=== PATIENT | female | born 1945 | race Caucasian/White ===

== ENCOUNTER 2024-08-08 12:01 | Emergency (ER) | payer MEDICARE, SELFPAY ==
[2024-08-08 12:02] VITALS: PULSE 60; RESP 16; O2SAT 98; BMI 15.5
[2024-08-08 12:04] VITALS: BP 184/78; PULSE 72; RESP 19; TEMP 37; O2SAT 95
--- NOTE | 2024-08-08 12:12 | XR_ITS ---
Examination: Duplex scan of the lower extremity, unilateral right Date and time of exam: August 08, 2024 1250 hours INDICATIONS: Right leg discoloration and pain 3 days Technique: Duplex scan of the extremity veins using B-mode/grayscale imaging and Doppler spectral analysis and color flow Attention is directed to internal echogenicity, compression and augmentation involving these veins, color flow assessment, spectral analysis Findings: Major deep venous structures in the extremity demonstrate normal course and caliber. There is no evidence of deep vein thrombosis. Normal color flow and spectral analysis 3.6 cm right popliteal cyst Impression: Negative for DVT..
--- NOTE | 2024-08-08 12:12 | XR_ITS ---
Examination:Right hip AP, lateral, AP pelvis 3 views Technique: Hip AP lateral, AP pelvis, 3 views Exam date and time:August 08, 2024 1306 hours INDICATIONS: Status post hip surgery 3 weeks ago. FINDINGS: Operative reduction internal fixation right femoral neck fracture The femoral head is now displaced relative to the neck and intertrochanteric region right hip I do not have prior films for comparison. IMPRESSION: Interval abnormal significant displacement at the femoral neck fracture site, I do not have prior films for comparison
--- NOTE | 2024-08-08 12:14 | EDNOTE_ITS ---
ED Extremity Problem RME/HPI General Chief complaint: Extremity Problem,Nontraumatic Stated complaint: RIGHT LEG PAIN Time Seen by Provider: 08/08/24 13:55 Source: patient Arrival date/time: 08/08/24 12:01 79-year-old female with no known medical history presents to the emergency room with a chief complaint of right-sided hip and leg pain. Patient states she recently had right-sided hip surgery on 07/15/2024. Patient states her surgery went well and she felt good until 3 days ago when she developed pain that was not relieved with her pain medication. Mode of arrival: ambulatory Limitations: no limitations Related Data Allergies Allergy/AdvReac Type Severity Reaction Status Date / Time No Known Allergies Allergy Verified 08/08/24 12:36 Review of Systems Review of Systems Systems Reviewed: All systems reviewed, normal except as documented Constitutional Constitutional: Reports system reviewed and no additional complaints, except as documented, Denies fatigue, Denies fever(s), Denies headache(s) and Denies weakness Eyes Eyes: Reports system reviewed and no additional complaints, except as documented, Denies blurry vision and Denies change in vision ENT Ears, Nose, Mouth, and Throat: Reports system reviewed and no additional complaints, except as documented, Denies otalgia, Denies headache(s), Denies nasal congestion, Denies throat swelling and Denies vertigo Cardiovascular Cardiovascular: Reports system reviewed and no additional complaints, except as documented, Denies chest pain, Denies dyspnea and Denies dyspnea on exertion Respiratory Respiratory: Reports system reviewed and no additional complaints, except as documented, Denies chest congestion, Denies cough, Denies dyspnea, Denies dyspnea on exertion and Denies wheezing Gastrointestinal Gastrointestinal: Reports system reviewed and no additional complaints, except as documented, Denies abdominal pain, Denies cramping, Denies nausea and Denies vomiting Genitourinary Genitourinary: Reports system reviewed and no additional complaints, except as documented Musculoskeletal Musculoskeletal: Reports system reviewed and no additional complaints, except as documented, Reports arthralgias, Denies back pain, Reports joint swelling, Reports limited range of motion and Reports stiffness Integumentary/Breasts Skin/Breast: Reports system reviewed and no additional complaints, except as documented and Denies wounds Neurologic Neurologic: Reports system reviewed and no additional complaints, except as documented, Denies confusion, Denies headache(s), Denies lack of coordination, Denies vertigo and Denies weakness Psychiatric Psychiatric: Reports system reviewed and no additional complaints, except as documented, Denies anxiety, Denies confusion, Denies depression, Denies paranoia, Denies suicidal ideation and Denies tactile hallucinations Endocrine Endocrine: Reports system reviewed and no additional complaints, except as documented and Denies fatigue Hematologic/Lymphatic Hematologic/Lymphatic: Reports system reviewed and no additional complaints, except as documented and Denies lymphadenopathy Allergic/Immunologic Allergic/Immunologic: Reports system reviewed and no additional complaints, except as documented, Denies throat swelling, Denies urticaria and Denies wheezing Past Medical History Social History SMOKING STATUS: Never smoker ED Exam General Limitations: Present no limitations General appearance: Present alert and in no apparent distress Head Head exam: Present atraumatic Eye Eye exam: Present normal appearance, PERRL and EOMI ENT ENT exam: Present normal exam, normal oropharynx and mucous membranes moist Neck Neck exam: Present normal inspection, full ROM and trachea midline Chest Chest inspection: Present normal inspection and symmetric chest wall rise Respiratory Respiratory exam: Present normal lung sounds bilaterally Cardiovascular Cardiovascular exam: Present regular rate, normal rhythm and normal heart sounds Abdominal Exam Abdominal exam: Present soft and normal bowel sounds Extremities Exam Extremities exam: Present normal inspection and full ROM Expanded Lower Extremity Exam Hip/Pelvis exam: Present tenderness and swelling; Absent full ROM or erythema Upper leg exam: Present normal inspection Knee exam: Present normal inspection Lower leg exam: Present normal inspection Ankle exam: Present normal inspection Foot/toe exam: Present normal inspection Gait: not tested/not observed Back Exam Back exam: Present normal inspection and full ROM Neurological Exam Neurological exam: Present alert, oriented X3 and CN II-XII intact Psychiatric Psychiatric exam: Present normal affect and normal mood Skin Skin exam: Present warm, dry, intact and normal color Course Quality Measures none Orders Category Date Time Status Referral - [employer] Stat Cons 08/08/24 14:36 Active US venous doppler LE RT Stat Exams 08/08/24 12:12 Completed XR hip RT w pelvis min 4V Stat Exams 08/08/24 12:12 Completed UA, C/S IF [Urinalysis, C/S if Indicated] Stat Lab 08/08/24 12:41 Completed Morphine Inj Med 08/08/24 19:00 Discontinued 2 mg IVP X1 ONE Morphine Inj Med 08/08/24 12:12 Discontinued 4 mg IVP X1 ONE Morphine Inj Med 08/08/24 15:59 Discontinued 4 mg IVP X1 ONE Ondansetron Inj [Zofran Inj] Med 08/08/24 12:12 Discontinued 4 mg IVP X1 ONE Ondansetron Inj [Zofran Inj] Med 08/08/24 15:59 Discontinued 4 mg IVP X1 ONE Ondansetron Inj [Zofran Inj] Med 08/08/24 19:00 Discontinued 4 mg IVP X1 ONE Vital Signs Vital signs: Vital Signs Temperature 98.6 F 08/08/24 12:04 Pulse Rate 72 08/08/24 12:04 Respiratory Rate 19 08/08/24 12:04 Blood Pressure 184/78 H 08/08/24 12:04 Pulse Oximetry (%) 95 08/08/24 12:04 Oxygen Delivery Method Room Air 08/08/24 12:04 Extremity Problem MDM Narrative MDM Narrative:: 79-year-old female with no known medical history presents to the emergency room with a chief complaint of right-sided hip and leg pain. Patient states she recently had right-sided hip surgery on 07/15/2024. Patient states her surgery went well and she felt good until 3 days ago when she developed pain that was not relieved with her pain medication. Patient is hemodynamically stable and in no apparent distress Physical examination shows tenderness and pain to the patient's right hip. There is shortening to the leg and the patient has bruising to her knee. Patient states she was seen by her orthopedic surgeon on Wednesday and her symptoms began Wednesday. Patient states that as of Wednesday her pain has increased and she is having difficulty walking. An x-ray was completed and found in an interval abnormal significant displacement at the femoral neck fracture site. I spoke to our orthopedic doctor on-call Dr. Byrne and due to this being such a recent case as she has had surgery on 07/15/2024 his recommendations were to call the surgeon that did the surgery. I called Dr. Ivey at [facility] and he agreed and accepted the patient for transfer. He says it would be an emergency room to emergency room transfer and he will do surgery on the patient tomorrow. The transfer nurse was called and given this information Patient data External records reviewed:: [facility] previous records Clinical information provided by:: patient Social determinants that could affect healthcare access:: none Patient has the following chronic illnesses:: No chronic illness How is presenting disease/condition affected by chronic disease/condition?: no chronic disease Evaluation data The following diagnostics were reviewed and interpreted by me:: lab results and radiology exam(s) Lab and/or radiology exams considered but not ordered:: Labs radiology exams considered in order Interpretation Summary: X-ray right hip-FINDINGS: Operative reduction internal fixation right femoral neck fracture The femoral head is now displaced relative to the neck and intertrochanteric region right hip I do not have prior films for comparison. IMPRESSION: Interval abnormal significant displacement at the femoral neck fracture site, I do not have prior films for comparison Doppler right leg- Medications / Prescriptions Medications or Prescriptions considered but not ordered:: N/A Medication administrations:: Medication Administration History Discontinued Medications Morphine Sulfate (Morphine Sulf Inj 10 Mg/Ml Vial) 4 mg IVP X1 ONE Stop: 08/08/24 12:13 Last Admin: 08/08/24 12:57 Dose: 4 mg Documented By: EF Morphine Sulfate (Morphine Sulf Inj 10 Mg/Ml Vial) 4 mg IVP X1 ONE Stop: 08/08/24 16:00 Last Admin: 08/08/24 16:05 Dose: 4 mg Documented By: SM Morphine Sulfate (Morphine Sulf Inj 10 Mg/Ml Vial) 2 mg IVP X1 ONE Stop: 08/08/24 19:01 Last Admin: 08/08/24 19:05 Dose: 2 mg Documented By: EF Ondansetron HCl (Ondansetron Inj 2 Mg/Ml Inj 2 Ml) 4 mg IVP X1 ONE; Protocol Stop: 08/08/24 12:13 Last Admin: 08/08/24 12:58 Dose: 4 mg Documented By: EF Ondansetron HCl (Ondansetron Inj 2 Mg/Ml Inj 2 Ml) 4 mg IVP X1 ONE; Protocol Stop: 08/08/24 16:00 Last Admin: 08/08/24 16:04 Dose: 4 mg Documented By: SM Ondansetron HCl (Ondansetron Inj 2 Mg/Ml Inj 2 Ml) 4 mg IVP X1 ONE; Protocol Stop: 08/08/24 19:01 Last Admin: 08/08/24 19:05 Dose: 4 mg Documented By: EF N/A Consultations Consultation(s) initiated? (list below): Yes Consultation #1 (Physician, Specialty, Details): Dr. Byrne drug and alcohol treatment specialist on-call Time: 14:00 Diagnosis Extremity Problem Differential Diagnosis: deep vein thrombosis of lower extremity and other (Right hip fracture) Most likely diagnosis given after review of the tests above:: Femoral neck fracture Admission Indicated Admission indicated?: not indicated Admission Request Was there a request for admission?: No Disposition Plan Disposition Plan: Transfer (I spoke to Dr. Man the orthopedic doctor at [facility] and he will do surgery on the patient tomorrow. The patient will be transferred.) Discharge Plan Plan Patient Disposition: [facility] Pt Being Transferred to: [facility] Service Needed for Transfer: Orthopedics Prescriptions/Referrals Referrals: Francine Conner FNP-C [Primary Care Provider] - In 1 week Problem List Clinical Impression: Closed fracture head of femur Patient/Caregiver Discharge Instructions Print Language: Korean Stand Alone Forms: [employer] Info., Patient Portal Info Letter
[2024-08-08 12:51] LABS: Collection Type, Urine Clean Catch
[2024-08-08] MEDS: MORPHINE SULF INJ 10 MG/ML VIAL 4 MG IVP ×2 (12:57→16:05)
[2024-08-08] MEDS: ONDANSETRON INJ 2 MG/ML INJ 2 ML 4 MG IVP ×3 (12:58→19:05)
--- NOTE | 2024-08-08 13:02 | PC.NURSE ---
patient biba for right hip and leg pain patient states she woke up with pain and bruising on right knee. patient states she got surgery on right hip on july and was taking blood thinners.
[2024-08-08 13:31] LABS: Bacteria,Urine Rare; Bilirubin,Urine Negative (Negative); Blood,Urine Negative (Negative); Clarity,Urine Clear (Clear/Hazy); Color,Urine Lt-Yellow (Lt Yel-Yel); Culture Indicated,Urine Not Indicated; Glucose, Urine Negative (Negative); Ketones,Urine Negative (Negative); Leukocyte Esterase,Urine Negative (Negative); Nitrite,Urine Negative (Negative); Protein,Urine Negative (Neg - Trace); RBC,Urine < 1 /hpf (0-3); Specific Gravity,Urine 1.011 (1.001-1.035); Squamous Epithelial Cell,Urine < 1 /hpf (0-5); Urobilinogen,Urine Negative mg/dL (0.0-1.0); WBC,Urine < 1 /hpf (0-5)
[2024-08-08 14:44] VITALS: BP 164/80; PULSE 60; RESP 18; TEMP 37; O2SAT 100
--- NOTE | 2024-08-08 14:49 | PC.CM ---
Addendum entered by Karyn Conner RN 08/08/24 18:12: scouring pads supervisor time set with [facility] for 1900. I updated Lanise and I left packet with 1 CD on charge nurse desk. I updated Minda with [facility] transfer center. Addendum entered by Karyn Conner RN 08/08/24 17:06: 1658 I received a call from Minda from [facility] transfer center. Patient has been accepted to [facility] ED to ED with Dr. Patrick Man. Number to call and give report is [phone]. I will put transfer packet together and make a CD. Addendum entered by Karyn Conner RN 08/08/24 15:50: 1530 Minda called me back and states her doctor let her know that we should reach out to Dr. Patrick Man's office at [phone]. I provided the number to Jeanmarie EDWARDS. He states he will call the office. [phone] I spoke to Minda at [facility] and she states Dr. Man is not supervisor display fabrication today. She states she will reach out to her doctor supervisor display fabrication and get back to me. Original Note: [id number] I received a referral to transfer patient for orthopedics for continued care. Patient had surgery by Dr. Poe at [facility] on 07/14.
[2024-08-08 15:54] VITALS: BP 158/69; PULSE 61; RESP 17; TEMP 36.9; O2SAT 99
[2024-08-08 18:11] VITALS: BP 123/97; PULSE 63; RESP 15; O2SAT 96
--- NOTE | 2024-08-08 18:16 | PC.NURSE ---
report called to fany mariano via telephone from [facility]
[2024-08-08 18:31] VITALS: BP 123/97; PULSE 62; RESP 18; TEMP 37.2; O2SAT 99
[2024-08-08] MEDS: MORPHINE SULF INJ 10 MG/ML VIAL 2 MG IVP (19:05)
== END 2024-08-08 19:29 | disposition short-term general hospital (02) ==
PROVIDERS: Nurse Practitioner Family; Emergency Provider Emergency Medicine; PCP Nurse Practitioner Family
DX: S72.061A Displaced articular fracture of head of right femur, initial encounter for closed fracture (principal); M97.01XA Periprosthetic fracture around internal prosthetic right hip joint, initial encounter; X58.XXXA Exposure to other specified factors, initial encounter; Z75.1 Person awaiting admission to adequate facility elsewhere
CPT/HCPCS: 73503; 81001; 93971; 96374; 96375; 96376; 99285; J2270; J2405